=== PATIENT | male | born 1950 | race African-American/Black ===

== ENCOUNTER 2019-10-08 06:56 | Day surgery (SDC) | payer MEDICARE, MEDICAID ==
[2019-10-07 10:52] VITALS: BMI 18.8
[2019-10-08] MEDS ORDERED: Lidocaine 1% PF 5 ML VIAL ONE (10:13)
[2019-10-08] MEDS ORDERED: PROPOFOL 200 MG/20 ML VIAL ONE (10:13)
--- NOTE | 2019-10-08 11:42 | OP ---
DATE OF PROCEDURE: 10/08/2019 PROCEDURES PERFORMED: Colonoscopy with polypectomy, Endo clip placement, and tattoo injection. PREPROCEDURE DIAGNOSES: History of colon polyps, last colon exam in [place] 10 years ago. POSTPROCEDURE DIAGNOSES: Ascending colon polyps x2, one transverse colon polyp and large 1 cm sigmoid polyp. DESCRIPTION OF PROCEDURE: Written consents were obtained prior to procedure. After adequate sedation, the rectal exam performed was normal. The endoscope was advanced to the cecum. The quality of the bowel prep was good. Two ascending colon polyp measuring between 3 to 5 mm were noted and were removed with snare electrocautery with good hemostasis. The polyps were removed. The ascending colon, hepatic flexure appeared normal. A 3 mm sessile polyp was noted in the mid transverse, and was removed, but not retrieved. The splenic flexure and descending colon appeared normal. In the sigmoid colon at 20 cm from the anal verge, a 1 cm sessile polyp was noted. This polyp was removed with a snare and was retrieved. Because of the large mucosal defect, two hemoclips were deployed to close the gap. There was no bleeding noted. The area was marked with a total of 1 mL of Twila ink. The rectosigmoid and rectal vault appeared normal. The patient tolerated the procedure well. ASSESSMENT: Two ascending colon polyps, one transverse polyp and one 1 cm sigmoid polyps, all removed. PLAN: Await biopsy results. Job ID: [id number]
== END 2019-10-08 11:13 | disposition home or self-care (01) ==
LOC: SDC 06:56
PROVIDERS: ATTEND Internal Medicine Gastroenterology
PROC: 0DBK8ZZ Excision of Ascending Colon, Via Natural or Artificial Opening Endoscopic (ICD-10-PCS; principal; 2019-10-08)
PROC: 0DBN8ZZ Excision of Sigmoid Colon, Via Natural or Artificial Opening Endoscopic (ICD-10-PCS; 2019-10-08)
PROC: 0W3P8ZZ Control Bleeding in Gastrointestinal Tract, Via Natural or Artificial Opening Endoscopic (ICD-10-PCS; 2019-10-08)
PROC: 0D7E8DZ Dilation of Large Intestine with Intraluminal Device, Via Natural or Artificial Opening Endoscopic (ICD-10-PCS; 2019-10-08)
DX: Z12.11 Encounter for screening for malignant neoplasm of colon (principal); D12.4 Benign neoplasm of descending colon; C18.7 Malignant neoplasm of sigmoid colon; D12.3 Benign neoplasm of transverse colon; Z86.010 Personal history of colon polyps
CPT/HCPCS: 88305; 88313; J2001; J2704

== ENCOUNTER 2019-10-23 11:00 | Inpatient (IN) | payer MEDICARE, MEDICAID ==
[2019-10-27] MEDS ORDERED: Midazolam HCl 2 mg/2 ml Vial ONE ×2 (06:20→06:33)
[2019-10-27] MEDS ORDERED: Fentanyl 100 MCG/2 ML VIAL ONE ×2 (06:20→06:33)
[2019-10-27] MEDS ORDERED: Dexamethasone 4 mg/ml Vial ONE (06:54)
[2019-10-27] MEDS ORDERED: ceFOXitin 2 GM/50 ML Duplex BAG ONE (06:57)
[2019-10-27] MEDS ORDERED: Promethazine HCl 25 MG/ML VIAL IM PRN ×2 (08:06→10:04)
[2019-10-27] MEDS ORDERED: Promethazine HCl 25 MG/ML VIAL SLOW IVP PRN (08:06)
[2019-10-27] MEDS ORDERED: Ondansetron HCl/PF 4 MG/2 ML Vial IVP PRN (08:06)
[2019-10-27] MEDS ORDERED: cefOXitin 2 GM VIAL ONE (09:39)
[2019-10-27] MEDS ORDERED: Morphine 4 MG/ML VIAL SLOW IVP PRN (10:04)
[2019-10-27] MEDS ORDERED: Morphine 10 MG/ML VIAL SLOW IVP PRN (10:04)
[2019-10-27] MEDS ORDERED: Ondansetron PF 4 MG/2 ML Vial IVP PRN (10:04)
[2019-10-27] MEDS ORDERED: Morphine 2 MG/ML SYRINGE SLOW IVP PRN (10:04)
[2019-10-27] MEDS ORDERED: hydrALAZINE 20 MG/ML VIAL SLOW IVP PRN (10:04)
[2019-10-27] MEDS: Sodium Chloride 0.9% 1,000 ML IV SCH ×3 (12:32→23:53)
[2019-10-27] MEDS: Acetaminophen 1,000 MG in Premix Bag 1 BAG IVPB SCH ×3 (12:33→23:49)
[2019-10-27] MEDS: metroNIDAZOLE 500 MG in Premix Bag 1 BAG IVPB SCH ×3 (12:34→23:49)
[2019-10-27] MEDS: Ketorolac Tromethamine 30 MG/ML VIAL IVP SCH ×4 (12:35→20:59)
[2019-10-27 12:56] VITALS: BMI 18.7
--- NOTE | 2019-10-27 13:01 | OP ---
DATE OF PROCEDURE: 10/27/2019 PREOPERATIVE DIAGNOSIS: Sigmoid colon cancer. PROCEDURE PERFORMED: Low anterior resection. INDICATIONS: A 68-year-old male, who had a malignant polyp removed during colonoscopy that the adenocarcinoma went to the edge of the specimen. It was supposedly tattooed at about 20 cm from the anal verge. FINDINGS: There was no tattoo and wound up having to open to make sure that, 1. The ureters were fine. 2. I could actually get down low enough to resect. DESCRIPTION OF PROCEDURE: After informed consent was obtained, the patient was taken to the operating room and given general endotracheal anesthesia, placed in the lithotomy position. His abdomen and perineum were prepped and draped in usual fashion. He had undergone tap blocks. A supraumbilical incision was performed and a 5-mm incision was performed. A Veress needle inserted. Drop test performed. Pneumoperitoneum was created to a volume of 2 L of carbon dioxide. Utilizing a bladeless 5-mm trocar and 0-degree laparoscope, direct visual entry into the abdominal cavity was performed. Pneumoperitoneum was created to a pressure of 15 mmHg. A 0-degree laparoscope inserted under direct vision. A 12-mm port was placed 2 cm medial to the anterior superior iliac spine on the right. Then, two more 5s were placed, one suprapubic and one left lateral abdomen. The patient was then placed in steep Trendelenburg position and the colon inspected from peritoneal reflection to splenic flexure. There was no evidence of any kind of tattoo in the colon. The peritoneum was opened and it was very thin, just very slow process. I had never could identify the ureter and so I was very uneasy about proceeding, wound up putting in a hand assisted port, really could not visualize the ureter, wound up opening a little bit and was further lateral than I expected and it appeared to be intact and there was no evidence of any injury to the ureter. The peritoneum was further opened down to the peritoneal reflection. The colon was divided at the peritoneal reflection with a Contour stapler. Then, it was measured off about 30 cm and it was divided there. The colon on the back table was opened and there was a clip, but again there was no dye anywhere, so this was sent to Pathology for further analysis. Hemostasis was assured. The abdomen irrigated, irrigation fluid removed. Staple line was removed proximally and a 31 EEA anvil was inserted through the antimesenteric taenia. Then, the colon was closed with a Contour stapler. The 31 EEA was inserted transanally, brought out through the staple line, connected to the anvil, closed, fired. The anastomosis was checked by insufflating the colon with air under water. There was no air leak. The abdomen was irrigated, irrigation fluid removed. The small amount of omentum was placed anteriorly. The fascia closed with a running looped #1 PDS. The subcu was irrigated and the skin was closed with a running subcuticular 4-0 Rapide. Steri-Strips applied. Sterile bandage applied. The patient tolerated the procedure well, transferred to Recovery in good condition. Sponge and needle count verified correct x2. Job ID: [id number]
[2019-10-27] MEDS ORDERED: Dexamethasone 20 MG/5 ML VIAL ONE (13:31)
[2019-10-27] MEDS ORDERED: Rocuronium Bromide 10 MG/ML (10ML VIAL) ONE (13:31)
[2019-10-27] MEDS ORDERED: Glycopyrrolate 0.2 MG/ML 5 ML SYRINGE ONE (13:31)
[2019-10-27] MEDS ORDERED: Ondansetron PF 4 MG/2 ML Vial ONE (13:31)
[2019-10-27] MEDS ORDERED: PROPOFOL 200 MG/20 ML VIAL ONE (13:31)
[2019-10-27] MEDS ORDERED: Bupivacaine HCl 0.5%/Epinephrine 1:200,000/PF 30 ml Vial ONE (13:31)
[2019-10-27] MEDS ORDERED: Ketorolac Tromethamine 30 MG/ML VIAL ONE (13:31)
[2019-10-27] MEDS: CEFAZOLIN 2 GM in Premix Bag 1 BAG IVPB SCH ×2 (15:10→21:07)
[2019-10-27] MEDS: Famotidine/PF 20 mg/2ml Vial SLOW IVP SCH (21:01)
[2019-10-27] MEDS: Famotidine 20 MG TAB PO SCH (21:01)
[2019-10-28] MEDS: Ketorolac Tromethamine 30 MG/ML VIAL IVP SCH ×2 (03:48→08:50)
[2019-10-28] MEDS: Sodium Chloride 0.9% 1,000 ML IV SCH ×3 (03:49→17:33)
[2019-10-28 05:44] LABS: #Lymphocytes 0.8 thou/uL (1.20-3.40); #Neutrophils 12.2 thou/uL (1.40-6.50); %Lymphocytes 5.6 % (21.0-51.0); %Monocytes 7.4 % (0.0-10.0); %Neutrophils 86.9 % (42.0-75.0); Hemoglobin 11.3 g/dL (14.0-18.0); Mean Corpuscular HGB CONC 32.4 g/dL (32.0-36.0); Mean Corpuscular Volume 89.4 fL (78.0-98.0); Mean Platelet Volume 8.4 fL (7.4-10.4); Platelet Count 187 thou/uL (130-400); RBC Distribution Width 12.6 % (11.5-14.5); Red Blood Cell (RBC) Count 3.91 mill/uL (4.70-6.10)
[2019-10-28] MEDS: Acetaminophen 1,000 MG in Premix Bag 1 BAG IVPB SCH (06:01)
[2019-10-28 06:09] LABS: Anion Gap 10 mmol/L (10-20); BUN (Urea Nitrogen) 14 mg/dL (8.4-25.7); Calc. Creatinine Clearance 41 mL/min (70-130); Calcium 8.6 mg/dL (7.8-10.44); Carbon Dioxide 25 mmol/L (23-31); Chloride 108 mmol/L (98-107); Estimated GFR-MDRD 66; Glucose 119 mg/dL (80-115); Potassium 3.9 mmol/L (3.5-5.1); Sodium 139 mmol/L (136-145)
[2019-10-28] MEDS ORDERED: Sodium Chloride 0.9% 1,000 ML IV SCH (07:15)
[2019-10-28] MEDS: Enoxaparin Sodium 30 MG/0.3 ML SYRINGE SC SCH (08:49)
[2019-10-28] MEDS: Famotidine/PF 20 mg/2ml Vial SLOW IVP SCH ×2 (08:49→19:49)
[2019-10-28] MEDS: Famotidine 20 MG TAB PO SCH ×2 (08:51→19:50)
--- NOTE | 2019-10-28 09:47 | PRG ---
DATE OF SERVICE: 10/28/2019 SUBJECTIVE: The patient is awake and alert. His family says he is acting fine. OBJECTIVE: VITAL SIGNS: His temperature is 98.2, pulse 66, blood pressure 146/65. GENERAL: He is awake, does not appear to be in any distress. He has a tiny little chilkat of drainage on the inferior portion of his wound. ABDOMEN: Nondistended. GENITOURINARY: Urine output 1400. LABORATORY: His white count is 14, H and H 11 and 35, platelet count 187. Electrolytes show an elevated creatinine of 1.3. His BUN is 14. ASSESSMENT: Stable. PLAN: We will give him a little extra fluid. We will hold his Toradol and start him on some ice chips. Job ID: [id number]
[2019-10-28 18:04] LABS: Hemoglobin 11.1 g/dL (14.0-18.0)
[2019-10-29] MEDS: Sodium Chloride 0.9% 1,000 ML IV SCH ×4 (00:09→23:09)
[2019-10-29 06:14] LABS: #Lymphocytes 1.1 thou/uL (1.20-3.40); #Monocytes 0.7 thou/uL (0.11-0.59); #Neutrophils 5.8 thou/uL (1.40-6.50); %Basophils 0.6 % (0.0-1.0); %Eosinophils 0.3 % (0.0-10.0); %Lymphocytes 14.5 % (21.0-51.0); %Monocytes 9.3 % (0.0-10.0); %Neutrophils 75.2 % (42.0-75.0); Hemoglobin 10.2 g/dL (14.0-18.0); Mean Corpuscular HGB CONC 32.9 g/dL (32.0-36.0); Mean Corpuscular Hemoglobin 29.5 pg (27.0-31.0); Mean Corpuscular Volume 89.6 fL (78.0-98.0); Mean Platelet Volume 8.3 fL (7.4-10.4); Platelet Count 168 thou/uL (130-400); RBC Distribution Width 12.6 % (11.5-14.5); Red Blood Cell (RBC) Count 3.46 mill/uL (4.70-6.10); White Blood Cell (WBC) Count 7.8 thou/uL (4.8-10.8)
[2019-10-29 06:38] LABS: Anion Gap 9 mmol/L (10-20); BUN (Urea Nitrogen) 15 mg/dL (8.4-25.7); Calc. Creatinine Clearance 51 mL/min (70-130); Calcium 8.2 mg/dL (7.8-10.44); Carbon Dioxide 24 mmol/L (23-31); Chloride 113 mmol/L (98-107); Estimated GFR-MDRD 84; Glucose 83 mg/dL (80-115); Potassium 3.8 mmol/L (3.5-5.1); Sodium 142 mmol/L (136-145)
[2019-10-29] MEDS: Enoxaparin Sodium 30 MG/0.3 ML SYRINGE SC SCH (08:11)
[2019-10-29] MEDS: Famotidine/PF 20 mg/2ml Vial SLOW IVP SCH ×2 (08:11→20:25)
[2019-10-29] MEDS: Famotidine 20 MG TAB PO SCH ×2 (08:12→20:29)
--- NOTE | 2019-10-29 10:34 | PRG ---
DATE OF SERVICE: 10/29/2019 SUBJECTIVE: The patient had a few dark bloody bowel movements yesterday. He is doing better now. OBJECTIVE: GENERAL: He is awake, alert, and comfortable. VITAL SIGNS: His temperature is 97.6, pulse 58, and blood pressure 141/60. ABDOMEN: Soft and nondistended. He is tolerating ice chips well. : Urine output is 825. LABORATORY DATA: His white count 7.8, H and H 10 and 31, and platelet count 168. Electrolytes are fine. ASSESSMENT: Doing well. PLAN: Discontinue Marin. Clear liquid diet. Ambulation. Job ID: [id number]
--- NOTE | 2019-10-30 08:55 | PRG ---
DATE OF SERVICE: 10/30/2019 SUBJECTIVE: The patient is doing very well. He is tolerating clear liquids well. He is hungry for real food. He has had two bowel movements. OBJECTIVE: On examination, he looks good. He is up in a chair, wide awake. His abdomen is soft. The incision is healing well. ASSESSMENT: Doing well. PLAN: Hep-Lock IV. Start GI soft. Job ID: [id number]
[2019-10-30] MEDS: Enoxaparin Sodium 30 MG/0.3 ML SYRINGE SC SCH (09:39)
[2019-10-30] MEDS: Famotidine 20 MG TAB PO SCH ×2 (09:39→19:24)
[2019-10-30] MEDS: Famotidine/PF 20 mg/2ml Vial SLOW IVP SCH ×2 (09:41→19:26)
[2019-10-30] MEDS: Sodium Chloride 0.9% 1,000 ML IV SCH ×2 (11:38→20:44)
[2019-10-31] MEDS: Sodium Chloride 0.9% 1,000 ML IV SCH (07:20)
[2019-10-31 07:53] VITALS: BP 166/75; TEMP 98
[2019-10-31] MEDS: Famotidine 20 MG TAB PO SCH (08:43)
[2019-10-31] MEDS: Famotidine/PF 20 mg/2ml Vial SLOW IVP SCH (08:45)
[2019-10-31] MEDS: Enoxaparin Sodium 30 MG/0.3 ML SYRINGE SC SCH (10:29)
--- NOTE | 2019-10-31 12:05 | PQF ---
BING LEBRON JR, JOHN A JR MD [id number] [place] [address] [id number] CLINICAL DOCUMENTATION IMPROVEMENT CLARIFICATION FORM: ICD-10 Updated PLEASE DO AN ADDENDUM TO THE PROGRESS NOTE WITH ANY DOCUMENTATION UPDATES OR ADDITIONS AND CARRY THROUGH TO DC SUMMARY. THANK YOU. DATE: 10/31/19 ATTN: Dr. Brandon Please exercise your independent, professional judgment in responding to the clarification form. Clinical indicators are provided on the bottom of this form for your review Please check appropriate box(s): [ ] Acute Renal Failure (ARF) / Acute Kidney Injury (CANDE) [ ] Acute Renal insufficiency [ ] Other diagnosis [ ] Unable to determine In addition, please specify: Present on Admission (POA): [ ] Yes [ ] No [ ] Unable to determine National Kidney Foundation Guidelines for CKD Staging Stage I Kidney damage with normal or increased GFRGFR > 90 Stage IIKidney damage with mildly decreased GFRGFR 60-89 Stage III Kidney damage with moderately decreased GFRGFR 30-59 Stage IVKidney damage with severely decreased GFRGFR 16-29 Stage VKidney failureGFR<15 ESRDEnd Stage Renal DiseaseOn dialysis Acute Renal Failure/Acute Kidney Failure defined as: Increases in SCr by (>) 0.3 mg/dl within 48 hours OR- Increases in SCr by (>) 1.5 times baseline, known or presumed to have occurred within the prior 7 days OR- Urine volume < 0.5 ml/kg/hour for 6 hours (KDIGO supplement 2012 for RIFLE/CHARLIE criteria) For continuity of documentation, please document condition throughout progress notes and discharge summary. Thank You. CLINICAL INDICATORS - SIGNS / SYMPTOMS / LABS / RESULTS AND LOCATION IN MR Abnormal labs (BUN, creatinine, low GFR)--> 10/28 BUN 14, CREAT 1.32, GFR 66 10/29 BUN 15, CREAT 1.07, GFR 84 per labs 10/28 Aleksandr: "Electrolytes show an elevated creatinine of 1.3. We will give him a little extra fluid. Hold his Toradol" RISK FACTORS / RESULTS AND LOCATION IN MR Use of NSAIDS--toradol 15mg 10/27 per orders TREATMENTS / RESULTS AND LOCATION IN MR IV fluids--> NS x1 liter 10/28; NS at 120 10/27 to 10/30 per orders. BMP 10/28-10/29 per orders (This form is maintained as a part of the permanent medical record) 2014 [employer], [employer]. All Rights Reserved Connie Alston RN, BSN, CCDS [email or web address] [phone] [facility]
--- NOTE | 2019-11-03 10:04 | DIS ---
DATE OF ADMISSION: 10/27/2019 DATE OF DISCHARGE: 10/31/2019 DISCHARGE DIAGNOSIS: Sigmoid colon cancer. PROCEDURE DURING ADMISSION: Low anterior resection. HOSPITAL COURSE: The patient was admitted, taken to the operating room, where he underwent a low anterior resection. Postoperatively, he did well. His bowel function returned. His diet advanced. He is tolerating a regular diet. He is discharged home on hydrocodone and Zofran and follow up with me in 2 weeks. Job ID: [id number]
== END 2019-10-31 10:25 | disposition home or self-care (01) | DRG 331 ==
LOC: SURG A 10-27 06:03
PROVIDERS: ADMIT Surgery; ATTEND Surgery
PROC: 0DBN4ZZ Excision of Sigmoid Colon, Percutaneous Endoscopic Approach (ICD-10-PCS; principal; 2019-10-27)
DX: C18.7 Malignant neoplasm of sigmoid colon (principal)
CPT/HCPCS: 36415; 36416; 80048; 85025; 88307; J0131; J0670; J0690; J0694; J1100; J1650; J1885; J2250; J2270; J2405; J2704; J3010; S0028

== ENCOUNTER 2019-10-23 11:37 | Outpatient (CLI) | payer MEDICARE, MEDICAID ==
[2019-10-23 13:06] LABS: #Basophils 0.1 thou/uL (0.0-0.2); #Eosinphils 0.1 thou/uL (0.0-0.7); #Lymphocytes 1.2 thou/uL (1.20-3.40); #Monocytes 0.5 thou/uL (0.11-0.59); #Neutrophils 2.5 thou/uL (1.40-6.50); %Basophils 1.2 % (0.0-1.0); %Eosinophils 1.4 % (0.0-10.0); %Lymphocytes 28.3 % (21.0-51.0); %Neutrophils 58.1 % (42.0-75.0); Hemoglobin 12.5 g/dL (14.0-18.0); Mean Corpuscular HGB CONC 33.4 g/dL (32.0-36.0); Mean Corpuscular Hemoglobin 29.8 pg (27.0-31.0); Mean Corpuscular Volume 89.3 fL (78.0-98.0); Mean Platelet Volume 8.2 fL (7.4-10.4); Platelet Count 219 thou/uL (130-400); RBC Distribution Width 12.5 % (11.5-14.5); White Blood Cell (WBC) Count 4.3 thou/uL (4.8-10.8)
[2019-10-23 13:15] LABS: Hemoglobin A1c 5.6 % (4.0-6.0)
[2019-10-23 13:30] LABS: ALT (SGPT) 13 U/L (8-55); AST (SGOT) 15 U/L (5-34); Alkaline Phosphatase 83 U/L (40-110); Anion Gap 9 mmol/L (10-20); BUN (Urea Nitrogen) 10 mg/dL (8.4-25.7); Bilirubin, Total 0.4 mg/dL (0.2-1.2); Calc. Creatinine Clearance 0 mL/min (70-130); Calcium 8.8 mg/dL (7.8-10.44); Carbon Dioxide 30 mmol/L (23-31); Chloride 105 mmol/L (98-107); Estimated GFR-MDRD Greater than 90; Globulin 2.7 g/dL (2.4-3.5); Glucose 109 mg/dL (80-115); Potassium 3.7 mmol/L (3.5-5.1); Protein, Total 6.7 g/dL (5.8-8.1); Sodium 140 mmol/L (136-145)
== END 2019-10-23 11:38 | disposition home or self-care (01) ==
LOC: LABBT 11:37
PROVIDERS: ATTEND Surgery
DX: Z01.818 Encounter for other preprocedural examination (principal); C18.7 Malignant neoplasm of sigmoid colon
CPT/HCPCS: 80053; 83036; 85025; 93005; 93010

== ENCOUNTER 2020-01-30 17:31 | Inpatient (IN) | payer MEDICARE, MEDICAID ==
--- NOTE | 2020-01-30 19:32 | PDOC.FPRHP ---
- History of Present Illness Chief Complaint: Abdominal pain History of Present Illness: Mr. Galindo is a 69yo M who presents to the ED for abdominal pain, loose bowel movements, and vomiting. He has a history of a bowel resection and re- anastomosis in October 2019. Last night he had a fecal accident and then complained that his stomach hurt. This morning he started complaining of a stomachache, and shortly thereafter began vomiting. He was walking and bent over in pain and was vomiting, which prompted his sister to bring him to the ED. He lives with his sister, Claudia, and his other sister Meenakshi also helps provide care for him. - Allergies/Adverse Reactions Allergies Allergy/AdvReac Type Severity Reaction Status Date / Time No Known Allergies Allergy Verified 01/30/20 21:02 - Home Medications Medication Instructions Recorded Confirmed Type HYDROcodone/Acetaminophen [Amelia 1 each PO Q6HR PRN 01/30/20 History 5-325 Tablet] - History PMHx: Colon cancer PSHx: Colon resection FHx: Non-contributory Social: Denies alcohol, drug, or tobacco use. - Review of Systems General: denies: fever/chills, weight/appetite/sleep changes, fatigue Eyes: denies: eye pain, vision changes ENT: denies: nasal congestion, rhinorrhea Respiratory: denies: cough, congestion, shortness of breath Cardiovascular: denies: chest pain, palpitation, edema, paroxysmal nocturnal dyspnea Gastrointestinal: reports: nausea, vomiting, diarrhea, abdominal pain. denies: constipation, GI bleeding Genitourinary: denies: incontinence, dysuria, polyuria Skin: denies: rashes, lesions Musculoskeletal: denies: pain, tenderness Neurological: denies: numbness, syncope Psychological: denies: anxiety, depression - Vital signs BP: 155/66, Pulse: 67, Resp: 18, Pain: 5, O2 sat: 98 on (Room Air), Weight 50kg - Physical Exam Constitutional: NAD, awake, alert and oriented, well developed HEENT: normocephalic and atraumatic, PERRLA, EOMI, conjunctiva clear, grossly normal vision, grossly normal hearing, MMM Neck: supple, FROM, trachea midline Heart: RRR, normal S1/S2, no murmurs/rubs/gallops, pulses present, no edema Lungs: CTAB, no respiratory distress, good air movement, no rales/rhonchi, no wheezing Abdomen: soft, bowel sounds present, no masses/distention, no hernias Musculoskeletal: normal structure, normal tone Neurological: no focal deficit, normal sensation Skin: no rash/lesions, good turgor, capillary refill <2 seconds Heme/Lymphatic: no unusual bruising or bleeding, no purpura, no petechia -Psychiatric: Intellectual disability. FMR H&P: Results - Labs Lab results: Na 140, K 4.0, Cl 105, CO2 24, Glucose 119, BUN 12.7, Cr 1.0, AST 18, ALT 16, Lipase 9. WBC 4.85, Hb 13, Hct 40.2, Platelets 240 - Radiology Interpretation CT scan - abdomen Status: report reviewed by me (Per ER physician - appears to have SBO) FMR H&P: A/P - Problem List (1) Small bowel obstruction Current Visit: Yes Status: Acute Code(s): K56.609 - UNSP INTESTNL OBST, UNSP TO PARTIAL VERSUS COMPLETE OBST - Plan Possible small bowel obstruction - Per CT done in [place], likely SBO. - No emesis since arrival to ED. - General surgery contacted. Will consult. - NPO, morphine for pain management, IV fluids and reevaluate in the morning. Dispo: Stable, PCP: OOT Code: Full Contact: SisterClaudia (primary caregiver) [phone] SisterMeenakshi, FMR H&P: Upper Level - Plan Date/Time: 01/30/201931 IDiego DO, have evaluated this patient and agree with findings/ plan as outlined by trestle mainternance laborer resident. Pertinent changes/additions are listed here. 69 yo M presents for abdominal pain and NV. Pts sister reports vomitus x2 today. Also reports BM this am. Pain reportedly started later in the day. He had bowel resection with reanastamosis in October by Dr Brandon. Will admit to med obs for SBO. He has normoactive bs on exam and is otherwise soft NTND without rebound or guarding. IVF, no NG tube currently unless pt continues to vomit. Prn pain control meds added. Consult gen surg, appreciate recs.
[2020-01-30] MEDS ORDERED: Morphine 2 MG/ML SYRINGE SLOW IVP PRN (20:11)
[2020-01-30] MEDS ORDERED: Ondansetron PF 4 MG/2 ML Vial IVP PRN (20:11)
[2020-01-30] MEDS ORDERED: Acetaminophen 650 MG Suppository PR PRN (20:11)
[2020-01-30] MEDS ORDERED: Morphine 4 MG/ML VIAL SLOW IVP PRN (20:11)
[2020-01-30] MEDS: Lactated Ringer's 1,000 ML IV SCH (22:43)
[2020-01-31 04:20] VITALS: BMI 18.1
[2020-01-31 06:30] LABS: Anion Gap 14 mmol/L (10-20); BUN (Urea Nitrogen) 7 mg/dL (8.4-25.7); Calc. Creatinine Clearance 70 mL/min (70-130); Calcium 8.4 mg/dL (7.8-10.44); Carbon Dioxide 21 mmol/L (23-31); Chloride 107 mmol/L (98-107); Estimated GFR-MDRD Greater than 90; Glucose 92 mg/dL (80-115); Potassium 3.3 mmol/L (3.5-5.1); Sodium 139 mmol/L (136-145)
--- NOTE | 2020-01-31 07:26 | PDOC.FM ---
- Subjective Subjective: Pt has slept most of the night. Sister in the room says he is having paste like bowel movements where they were formed before, but denies any water loose stools. - Objective MAR Reviewed: Yes Vital Signs & Weight: Vital Signs (12 hours) Temp Pulse Resp BP Pulse Ox 01/31/20 04:09 97.5 F L 63 18 143/72 H 99 01/31/20 00:05 97.9 F 69 18 137/69 95 01/30/20 23:05 97.4 F L 72 151/71 H 96 01/30/20 22:30 96 01/30/20 21:00 97.4 F L 72 151/71 H 96 01/30/20 20:11 95 Weight Weight 54.176 kg Result Diagrams: 01/31/20 05:55 01/31/20 05:55 Phys Exam - Physical Examination Constitutional: NAD HEENT: moist MMs, oral pharynx no lesions Neck: no nodes, supple Respiratory: no wheezing, no rales, no rhonchi, clear to auscultation bilateral Cardiovascular: RRR, no significant murmur Gastrointestinal: soft, non-tender, positive bowel sounds Musculoskeletal: no edema, pulses present Neurological: moves all 4 limbs Lymphatic: no nodes Psychiatric: normal affect Skin: no rash, normal turgor Dx/Plan (1) Ileus Code(s): K56.7 - ILEUS, UNSPECIFIED Status: Acute (2) Hypokalemia Code(s): E87.6 - HYPOKALEMIA Status: Acute - Plan Plan: Mr. Galindo is a 69yo M who presents to the ED for abdominal pain, loose bowel movements, and vomiting. 1. Ileus Per CT done in [place], likely SBO. CT later evaluated by Dr. Schroeder who says it is an ileus. * No emesis since arrival to ED. * General surgery consulted, Dr. Schroeder, appreciate recs. * NPO, morphine for pain management, IV fluids. 2. Hypokalemia K: 3.3 * Will monitor and replace as needed. Code Status: Full Diet: NPO IVF: LR @ 100 PCP: OOT Dispo: Med inpt for SBO, LOS > 48H. Will treat with supportive care. Contact: Claudia Melo (primary caregiver) [phone] SisterMeenakshi, Addendum - Attending - Attending Attestation Date/Time: 01/31/20 1644 I personally evaluated the patient and discussed the management with Dr. Osborne I agree with the History, Examination, Assessment and Plan documented above with any addition or exceptions noted below. Monitor for resolution of ileus. appreciate surg recs. continue IVF.
[2020-01-31 07:39] LABS: Band 1 % (5-11); Eosinophils 5 % (0-10); Hemoglobin 11.8 g/dL (14.0-18.0); Lymphocytes 34 % (21-51); MDiff Complete? YES; Mean Corpuscular HGB CONC 33.6 g/dL (32.0-36.0); Mean Corpuscular Hemoglobin 29.3 pg (27.0-31.0); Mean Corpuscular Volume 87.2 fL (78.0-98.0); Mean Platelet Volume 7.9 fL (7.4-10.4); Monocytes 11 % (0-10); Neutrophil 47 % (42-75); Platelet Count 233 thou/uL (130-400); RBC Distribution Width 13.2 % (11.5-14.5); Red Blood Cell (RBC) Count 4.02 mill/uL (4.70-6.10); White Blood Cell (WBC) Count 3.3 thou/uL (4.8-10.8)
--- NOTE | 2020-01-31 08:19 | PDOC.EVN ---
Event Note - Event Note Event Note: Full consult dictated but after consult CT reviewed. The CT shows dilated colon and mildly dilated small intestine. There is no obvious bowel obstruction. There is some free fluid in pelvis. That changes my impression from SBO to ileus. Given his loose stools would recommend stool for cdiff. Treatment supportive.
--- NOTE | 2020-01-31 08:29 | CON ---
DATE OF CONSULTATION: 01/31/2020 CHIEF COMPLAINT: Abdominal pain. HISTORY OF PRESENT ILLNESS: This is a 69-year-old who presents with a history of more loose bowel movements associated with abdominal pain. The patient had low anterior resection of colon by Dr. Brandon in October 2019 for a polyp that was malignant. His final pathology showed no residual malignancy and negative lymph nodes. This started with a loose bowel movement followed by abdominal pain. CT scan showed a little real free fluid in the abdomen, but no significant dilation of the intestine or colon. The patient's ability to communicate with the history and physical is limited and most of it is from the family member. PAST MEDICAL HISTORY: Colon cancer. SURGICAL HISTORY: This colon resection. MEDICATIONS: Taken at home; occasional hydrocodone. ALLERGIES: NO KNOWN DRUG ALLERGIES. SOCIAL HISTORY: No smoking, alcohol, or other drugs. REVIEW OF SYSTEMS: 10-system review of systems is otherwise negative unless described above. PHYSICAL EXAMINATION: VITAL SIGNS: Pulse is 63, respirations 18, blood pressure 143/72, temperature 97.5. HEENT: Sclerae are anicteric. Oropharynx clear. NECK: No lymphadenopathy. CHEST: Clear. HEART: Regular rate and rhythm. ABDOMEN: Soft. Minimally diffusely tender, mild, without guarding or rebound. He does have bowel sounds present. Well-healed incisions without obvious hernia. DIAGNOSTIC STUDIES: CT scan is not available for me to review. ASSESSMENT: 1. Abdominal pain, question of bowel obstruction, although he is not vomiting. 2. Loose stools. PLAN: Check stool for C difficile if he does in fact continue to have loose stools, try to find this CT scan for review by myself. Otherwise, plan would be n.p.o., IV fluids today. Gastrografin small bowel follow-through tomorrow if not markedly improved. Job ID: [id number]
[2020-01-31] MEDS: Lactated Ringer's 1,000 ML IV SCH ×2 (08:33→18:35)
[2020-01-31] MEDS: Enoxaparin Sodium 40 MG/0.4 ML SYRINGE SC SCH (08:34)
[2020-02-01] MEDS: Lactated Ringer's 1,000 ML IV SCH (05:02)
--- NOTE | 2020-02-01 07:07 | PDOC.FM ---
- Subjective Subjective: No vomiting yesterday. Still complaining of epigastric pain today. He has had runny stools and Cdiff was unable to collect. - Objective MAR Reviewed: Yes Vital Signs & Weight: Vital Signs (12 hours) Temp Pulse Resp BP Pulse Ox 02/01/20 03:54 97.6 F 65 18 147/71 H 98 02/01/20 03:10 98 02/01/20 00:00 97.9 F 71 18 148/66 H 98 01/31/20 20:00 97.9 F 69 18 164/73 H 98 Weight Admit Weight 54.176 kg Weight 54.176 kg I&O: 01/31/20 02/01/20 02/02/20 06:59 06:59 06:59 Output Total 350 Balance -350 Result Diagrams: 02/01/20 07:59 02/01/20 07:59 Phys Exam - Physical Examination Constitutional: NAD HEENT: moist MMs, sclera anicteric, oral pharynx no lesions Neck: no nodes, supple Respiratory: no wheezing, no rales, no rhonchi, clear to auscultation bilateral Cardiovascular: RRR, no rub Gastrointestinal: soft, non-tender, positive bowel sounds Musculoskeletal: no edema, pulses present Neurological: moves all 4 limbs Lymphatic: no nodes Psychiatric: normal affect Skin: no rash, normal turgor Dx/Plan (1) Ileus Code(s): K56.7 - ILEUS, UNSPECIFIED Status: Acute (2) Hypokalemia Code(s): E87.6 - HYPOKALEMIA Status: Acute - Plan Plan: Mr. Galindo is a 69yo M who presents to the ED for abdominal pain, loose bowel movements, and vomiting. 1. Ileus Per CT done in [place], likely SBO. CT later evaluated by Dr. Schroeder who says it is an ileus. * No emesis since arrival to ED. * General surgery consulted, Dr. Schroeder, appreciate recs. * NPO, morphine for pain management, IV fluids. * Will have a small bowel follow through if symptoms are not better today. 2. Hypokalemia, Resolved K: 3.3 > 3.5 * Will monitor and replace as needed. Code Status: Full Diet: NPO IVF: LR @ 100 PCP: OOT Dispo: Med inpt for SBO, LOS > 48H. Will try and obtain stool for cdiff and consider small bowel follow through today. Contact: Claudia Melo (primary caregiver) [phone] SisterMeenakshi, Addendum - Attending - Attending Attestation Date/Time: 02/01/20 1440 I personally evaluated the patient and discussed the management with Dr. Osborne I agree with the History, Examination, Assessment and Plan documented above with any addition or exceptions noted below. Patient having small BM. XR today showed nonspecific gas pattern. Diet advanced by gen surg. will monitor.
[2020-02-01 08:13] LABS: #Eosinphils 0.1 thou/uL (0.0-0.7); #Lymphocytes 1.5 thou/uL (1.20-3.40); #Monocytes 0.6 thou/uL (0.11-0.59); #Neutrophils 2.4 thou/uL (1.40-6.50); %Eosinophils 2.2 % (0.0-10.0); %Lymphocytes 32.2 % (21.0-51.0); %Monocytes 12.5 % (0.0-10.0); %Neutrophils 53.1 % (42.0-75.0); Hemoglobin 12.4 g/dL (14.0-18.0); Mean Corpuscular Hemoglobin 27.3 pg (27.0-31.0); Platelet Count 233 thou/uL (130-400); RBC Distribution Width 13.2 % (11.5-14.5); Red Blood Cell (RBC) Count 4.56 mill/uL (4.70-6.10); White Blood Cell (WBC) Count 4.5 thou/uL (4.8-10.8)
[2020-02-01] MEDS: Enoxaparin Sodium 40 MG/0.4 ML SYRINGE SC SCH (08:26)
[2020-02-01 08:33] LABS: ALT (SGPT) 11 U/L (8-55); AST (SGOT) 14 U/L (5-34); Albumin 3.7 g/dL (3.4-4.8); Alkaline Phosphatase 72 U/L (40-110); Anion Gap 16 mmol/L (10-20); BUN (Urea Nitrogen) 8 mg/dL (8.4-25.7); Bilirubin, Total 0.9 mg/dL (0.2-1.2); Calc. Creatinine Clearance 69 mL/min (70-130); Calcium 8.8 mg/dL (7.8-10.44); Carbon Dioxide 21 mmol/L (23-31); Chloride 103 mmol/L (98-107); Estimated GFR-MDRD Greater than 90; Globulin 2.6 g/dL (2.4-3.5); Glucose 64 mg/dL (80-115); Potassium 3.5 mmol/L (3.5-5.1); Protein, Total 6.3 g/dL (5.8-8.1); Sodium 136 mmol/L (136-145)
--- NOTE | 2020-02-01 09:21 | PRG ---
DATE OF SERVICE: 02/01/2020 SUBJECTIVE: Mr. Galindo has no complaints. He states that he is hungry. OBJECTIVE: VITAL SIGNS: He is afebrile. Vital signs are stable. ABDOMEN: Soft, nontender, nondistended. ASSESSMENT: Abdominal pain, nausea, vomiting, have resolved. PLAN: Check some plain x-rays today. If those look show a nonobstructive pattern, we will try clear liquids. Job ID: [id number]
--- NOTE | 2020-02-01 10:02 | RAD ---
ABDOMEN TWO VIEWS: HISTORY: Ileus. COMPARISON: There are no comparison studies. TECHNIQUE: Supine upright views obtained. FINDINGS: There is scattered stool and gas in the colon. There is some scattered contrast in the colon with foc al contrast seen at the rectum. Recommended correlation regarding prior contrast ingestion. Small bowel gas pattern is unremarkable with scattered small bowel gas. There is no evidence of small bowel dilatation or obstruction. No free air. No mass effect. IMPRESSION: Nonspecific small bowel gas without small bowel dilatation or evidence of obstruction. There is scatt ered contrast seen in the colon and rectum. POS: AGW
[2020-02-01] MEDS: Dextrose 5 % And 0.9 % NaCl 1,000 ML IV SCH ×2 (10:08→21:23)
[2020-02-02] MEDS: Dextrose 5 % And 0.9 % NaCl 1,000 ML IV SCH ×2 (05:15→15:17)
--- NOTE | 2020-02-02 06:47 | PDOC.FM ---
- Subjective Subjective: Pt sister provided history given pt's intellectual disability. Denies abd pain, nausea, vomiting. Tolerated CLD yesterday. C Diff neg. Stools still liquid. - Objective MAR Reviewed: Yes Vital Signs & Weight: Vital Signs (12 hours) Temp Pulse Resp BP Pulse Ox 02/02/20 04:54 97 02/02/20 04:00 97.5 F L 59 L 18 134/63 97 02/02/20 00:00 97.6 F 60 18 133/65 97 02/01/20 20:00 97.9 F 63 18 155/63 H 99 Weight Admit Weight 54.176 kg Weight 54.176 kg I&O: 01/31/20 02/01/20 02/02/20 06:59 06:59 06:59 Intake Total 2487 Output Total 350 1150 Balance -350 1337 Result Diagrams: 02/01/20 07:59 02/02/20 06:54 Phys Exam - Physical Examination Constitutional: NAD Respiratory: clear to auscultation bilateral Cardiovascular: RRR, no significant murmur Gastrointestinal: soft, no distention, positive bowel sounds mild tenderness and voluntary guarding. Psychiatric: A&O x 3 Dx/Plan (1) Hypokalemia Code(s): E87.6 - HYPOKALEMIA Status: Acute (2) Ileus Code(s): K56.7 - ILEUS, UNSPECIFIED Status: Acute - Plan Plan: Mr. Galindo is a 69yo M who presents to the ED for abdominal pain, loose bowel movements, and vomiting. 1. Ileus * General surgery consulted, Dr. Schroeder, appreciate recs. * continue CLD. Await surgery eval to [facility]. * if tolerates normal diet and no pain, can discharge. * May consider fiber supplementation to bulk stools as home regimen. 2. Hypokalemia, Resolved Code Status: Full Diet: CLD IVF: SL PCP: OOT Dispo: Med inpt, LOS > 48H. Contact: Claudia Melo (primary caregiver) [phone] SisterMeenakshi, Addendum - Attending - Attending Attestation Date/Time: 02/02/20 5752 I personally evaluated the patient and discussed the management with Dr. Silva. I agree with the History, Examination, Assessment and Plan documented above with any addition or exceptions noted below. Patient doing well, tolerating CLD well. Advance diet during lunch, see how he tolerates and consider discharge after that time per GenSurg recs.
[2020-02-02 07:15] LABS: Anion Gap 12 mmol/L (10-20); BUN (Urea Nitrogen) 4 mg/dL (8.4-25.7); Calc. Creatinine Clearance 72 mL/min (70-130); Calcium 8.2 mg/dL (7.8-10.44); Carbon Dioxide 25 mmol/L (23-31); Chloride 109 mmol/L (98-107); Estimated GFR-MDRD Greater than 90; Glucose 112 mg/dL (80-115); Potassium 3.4 mmol/L (3.5-5.1); Sodium 143 mmol/L (136-145)
[2020-02-02] MEDS: Enoxaparin Sodium 40 MG/0.4 ML SYRINGE SC SCH (07:40)
--- NOTE | 2020-02-02 09:53 | PRG ---
DATE OF SERVICE: 02/02/2020 SUBJECTIVE: Mr. Galindo has no complaints today. He tolerated the liquid diet yesterday acting like he is more hungry today. Denies nausea, abdominal pain, having bowel movements that are liquid still. His C diff is negative. OBJECTIVE: VITAL SIGNS: He is afebrile. Vital signs are stable. ABDOMEN: Soft, nontender, nondistended. ASSESSMENT: Abdominal pain, nausea, vomiting, resolved. LABORATORY DATA: CT scan showed ileus, but now he has more bowel function, loose stools, but C diff negative. PLAN: Plan is per Family Practice. I suspect he can be advanced and discharged. We will follow melva Job ID: [id number]
[2020-02-02 22:28] VITALS: BP 120/63; TEMP 97.7
--- NOTE | 2020-02-03 16:15 | DIS ---
DATE OF ADMISSION: 01/30/2020 DATE OF DISCHARGE: 02/02/2020 RESIDENT: Orly Silva MD. ADMITTING ATTENDING: Raul Lim MD. DISCHARGE ATTENDING: sAh Roque MD. CONSULTS: General Surgery. PROCEDURES PERFORMED: 1. Abdominal CT showing dilated colon and mildly dilated small intestine. No obvious bowel obstruction. 2. Abdominal x-ray, impression: Nonspecific small bowel gas without small bowel dilatation or evidence of obstruction. PRIMARY DIAGNOSES: 1. Intestinal ileus. 2. Hypokalemia. SECONDARY DIAGNOSIS: Intellectual disability. DISCHARGE MEDICATIONS: Metamucil 660 g p.o. daily for 30 days. Please prescribe 1 can. DISCONTINUED MEDICATIONS: None. HISTORY OF PRESENT ILLNESS AND HOSPITAL COURSE: Mr. Galidno is a 69-year-old male, who presented to the emergency room for abdominal pain, loose bowel movements, and vomiting. 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 At this previous admission, he had 16.5 cm of his colon removed. The night prior to admission, he had a fecal accident and complained of his stomach hurting. He also was vomiting, and his sister brought him to the emergency room. His sister, Clare and also his another sister, Meenakshi provided care for him. The patient denied alcohol, drug, or tobacco usage. CT done in the [facility] was reviewed by Dr. Schroeder, the general surgeon, who was consulted. Per the report in his review, he suspected a bowel ileus. He had recommended we check Clostridium difficile because of his loose stools, and Clostridium difficile result was negative for antigen and toxin. The patient improved daily throughout his hospital stay. He did not require an NG tube. His diet was slowly transitioned from clear liquid diet to full liquid diet and then regular diet, which he tolerated without difficulty, nausea, or vomiting. With regard to his liquid stools, it was recommended that the patient may need more fiber in his diet and so was sent home to be on daily Metamucil. The patient's vital signs remained stable on admission. His potassium was low at 3.3, and this was replaced while he was here. DISPOSITION: Stable. DISCHARGE INSTRUCTIONS: LOCATION: To home with his sisters as caregivers. DIET: Regular. ACTIVITY: As tolerated. FOLLOWUP: Follow up with primary care provider, Dr. Paz within [address] Schroeder as needed. Job ID: [id number]
== END 2020-02-02 20:52 | disposition home or self-care (01) | DRG 390 ==
LOC: ERS 17:31 → T4-B 19:32
PROVIDERS: ADMIT Family Medicine; ATTEND Family Medicine
DX: K56.7 Ileus, unspecified (principal); E87.6 Hypokalemia; Z85.038 Personal history of other malignant neoplasm of large intestine; Z90.49 Acquired absence of other specified parts of digestive tract
CPT/HCPCS: 36415; 74019; 80048; 80053; 85025; 87324; 87449; 99284; J1650

== ENCOUNTER 2021-09-16 12:53 | Outpatient (CLI) | payer MEDICARE, MEDICAID ==
[2021-09-16 15:28] LABS: Hemoglobin 13.3 g/dL (13.5-17.5); Mean Corpuscular HGB CONC 33.1 g/dL (32.0-36.0); Mean Corpuscular Volume 81.7 fl (81.2-95.1); Mean Platelet Volume 10.9 fl (7.4-10.4); Platelet Count 306 10x3/uL (150-450); RBC Distribution Width 14.5 % (11.5-14.5); Red Blood Cell (RBC) Count 4.92 10x6/uL (4.32-5.72); White Blood Cell (WBC) Count 4.8 10x3/uL (3.5-10.5)
[2021-09-16 15:46] LABS: PTT 26.6 sec (22.0-33.0); Prothrombin Time 10.6 sec (9.5-12.1)
[2021-09-16 15:53] LABS: Anion Gap 16 mmol/L (10-20); BUN (Urea Nitrogen) 13 mg/dL (8.4-25.7); Calc. Creatinine Clearance 0 mL/min (70-130); Calcium 10.1 mg/dL (7.8-10.44); Carbon Dioxide 22 mmol/L (23-31); Chloride 104 mmol/L (98-107); Glucose 92 mg/dL (80-115); Potassium 4.4 mmol/L (3.5-5.1); Sodium 138 mmol/L (136-145)
[2021-09-17 14:28] LABS: SARS-CoV-2 PCR by NAA Not Detected (NotDetected)
== END 2021-09-16 12:54 | disposition home or self-care (01) ==
LOC: LABBT 12:53
PROVIDERS: ATTEND Urology
DX: Z01.818 Encounter for other preprocedural examination (principal); R97.20 Elevated prostate specific antigen [PSA]; R91.8 Other nonspecific abnormal finding of lung field; Z20.822 Contact with and (suspected) exposure to COVID-19
CPT/HCPCS: 71046; 80048; 85027; 85610; 85730; U0003; U0005; 93005; 93010

== ENCOUNTER 2021-09-30 12:19 | Outpatient (CLI) | payer MEDICARE, OTHER ==
[2021-09-30 14:43] LABS: Hemoglobin 13.4 g/dL (13.5-17.5); Mean Corpuscular HGB CONC 33.1 g/dL (32.0-36.0); Mean Corpuscular Hemoglobin 27.2 pg (27.0-33.0); Mean Corpuscular Volume 82.3 fl (81.2-95.1); Mean Platelet Volume 10.6 fl (7.4-10.4); Platelet Count 321 10x3/uL (150-450); RBC Distribution Width 14.5 % (11.5-14.5); Red Blood Cell (RBC) Count 4.92 10x6/uL (4.32-5.72)
[2021-09-30 14:45] LABS: Bilirubin Neg (Negative); Blood, Urine Negative (Negative); Clarity Clear (Clear); Glucose, Urine (Dipstick) Normal (Negative); Ketone, Urine Negative (Negative); Leukocyte 25 (Negative); Nitrite Negative (Negative); Protein, Urine (Dipstick) Negative (Neg-Trace); Specific Gravity, Urine 1.005 (1.002-1.036); Urobilinogen Normal mg/dL (Less than 2); pH, Urine 6.5 (5.0-9.0)
[2021-09-30 14:49] LABS: INR-International Normal Ratio 0.9; PTT 26.2 sec (22.0-33.0); Prothrombin Time 10.5 sec (9.5-12.1)
[2021-09-30 14:53] LABS: Anion Gap 13 mmol/L (10-20); BUN (Urea Nitrogen) 12 mg/dL (8.4-25.7); Calc. Creatinine Clearance 0 mL/min (70-130); Calcium 9.7 mg/dL (7.8-10.44); Carbon Dioxide 24 mmol/L (23-31); Chloride 106 mmol/L (98-107); Glucose 89 mg/dL (80-115); Potassium 4.2 mmol/L (3.5-5.1); Sodium 139 mmol/L (136-145)
[2021-09-30 15:10] LABS: Bacteria/HPF None Seen HPF (None Seen); RBC/HPF None Seen HPF (0-3); Squamous Epithelial 0-3 HPF (0-3); WBC/HPF None Seen HPF (0-3)
[2021-09-30 23:21] LABS: SARS-CoV-2 PCR by NAA Not Detected (NotDetected)
== END 2021-09-30 12:20 | disposition home or self-care (01) ==
LOC: LABBT 12:19
PROVIDERS: ATTEND Urology
DX: Z01.812 Encounter for preprocedural laboratory examination (principal); N40.1 Benign prostatic hyperplasia with lower urinary tract symptoms; G80.9 Cerebral palsy, unspecified; Z20.822 Contact with and (suspected) exposure to COVID-19
CPT/HCPCS: 80048; 81001; 84153; 85027; 85610; 85730; 87086; U0003; U0005

== ENCOUNTER 2021-10-05 07:15 | Day surgery (SDC) | payer MEDICARE, MEDICAID ==
[2021-10-03 14:43] VITALS: BMI 23.5
[2021-10-05] MEDS ORDERED: cefTRIAXone\\ROCEPHIN 1 GM VIAL ONE (07:45)
[2021-10-05] MEDS ORDERED: Sodium Chloride 0.9% 100 ML ONE (07:45)
[2021-10-05] MEDS ORDERED: Levofloxacin 500 mg/D5W 100 ml Premix Bag ONE (07:45)
[2021-10-05] MEDS ORDERED: Fentanyl 100 MCG/2 ML VIAL ONE (08:22)
[2021-10-05] MEDS ORDERED: PROPOFOL 200 MG/20 ML VIAL ONE (08:28)
[2021-10-05] MEDS ORDERED: Ondansetron PF 4 MG/2 ML Vial ONE (08:28)
== END 2021-10-05 10:41 | disposition home or self-care (01) ==
LOC: SDC 07:15
PROVIDERS: ATTEND Urology
PROC: 0TJB8ZZ Inspection of Bladder, Via Natural or Artificial Opening Endoscopic (ICD-10-PCS; principal; 2021-10-05)
PROC: 0VB03ZX Excision of Prostate, Percutaneous Approach, Diagnostic (ICD-10-PCS; 2021-10-05)
DX: N41.1 Chronic prostatitis (principal); N42.89 Other specified disorders of prostate; N40.1 Benign prostatic hyperplasia with lower urinary tract symptoms; N39.41 Urge incontinence; G80.9 Cerebral palsy, unspecified; F71 Moderate intellectual disabilities; Z87.440 Personal history of urinary (tract) infections; Z80.42 Family history of malignant neoplasm of prostate; Z79.899 Other long term (current) drug therapy; Z90.49 Acquired absence of other specified parts of digestive tract
CPT/HCPCS: 88305; J0696; J1956; J2405; J2704; J3010; J3490